=== PATIENT | male | born 1985 | race Caucasian/White ===

== ENCOUNTER 2022-11-14 15:00 | Emergency (ER) | payer OTHER ==
[~2022-11-14] VITALS: Ht 180.3 cm; Wt 90.9 kg
[2022-11-14 15:12] VITALS: TEMP 97
[2022-11-14 15:45] VITALS: BP 132/88; PULSE 75
== END 2022-11-14 15:45 | disposition home or self-care (01) ==
LOC: COL.ER 15:00
DX: S61.210A Laceration without foreign body of right index finger without damage to nail, initial encounter (principal); Z28.310 Unvaccinated for COVID-19; Z23 Encounter for immunization; W26.8XXA Contact with other sharp object(s), not elsewhere classified, initial encounter; Y92.009 Unspecified place in unspecified non-institutional (private) residence as the place of occurrence of the external cause; Y93.89 Activity, other specified